=== PATIENT | male | born 1940 | race Two or more races ===

== ENCOUNTER 2017-10-07 01:08 | Inpatient (IN) | payer OTHER ==
[~2017-10-07] VITALS: Ht 274.3 cm; Wt 5.0 kg
[2017-10-09] MEDS ORDERED: DUI500 PO (16:03)
[2017-10-09] MEDS ORDERED: PERCOCET 5-3251 EACH PO (16:03)
[2017-10-09] MEDS ORDERED: XARELTO10 MG PO (16:03)
== END 2017-10-09 17:27 | DRG 481 ==
LOC: ER 01:08 → SEC-K 10:21 → O/R 11:00 → SURG 19:14
PROVIDERS: Orthopaedic Surgery
PROC: 0QR Lower Bones, Replacement (ICD-10-PCS; 2017-10-07)
PROC: 0QS706Z Reposition Left Upper Femur with Intramedullary Internal Fixation Device, Open Approach (ICD-10-PCS; principal; 2017-10-07 21:45)
DX: S72.22XA Displaced subtrochanteric fracture of left femur, initial encounter for closed fracture (principal); N17.8 Other acute kidney failure; N39.0 Urinary tract infection, site not specified; N18.4 Chronic kidney disease, stage 4 (severe); D62 Acute posthemorrhagic anemia; W01.0XXA Fall on same level from slipping, tripping and stumbling without subsequent striking against object, initial encounter; Y93.89 Activity, other specified; Y92.89 Other specified places as the place of occurrence of the external cause; Y99.8 Other external cause status; I12.9 Hypertensive chronic kidney disease with stage 1 through stage 4 chronic kidney disease, or unspecified chronic kidney disease; M81.0 Age-related osteoporosis without current pathological fracture; D63.1 Anemia in chronic kidney disease; B95.2 Enterococcus as the cause of diseases classified elsewhere